=== PATIENT | female | born 1955 | race American Indian/Alaskan Native ===

== ENCOUNTER 2020-08-08 19:56 | Emergency (ER) | payer MEDICARE ==
--- NOTE | 2020-08-08 20:08 | Event Note ---
ED Screening Note Date of service: 08/08/20 Time: 20:06 ED Screening Note: pt ia s 65 y/o aaf with hx of Lupus and current dx of H pyloir on , erythromycin, flagil, and prevacid po , Plaquinil for lupus, states worsen n/v cp, and sob , seen by pcp not improved with 2L NS, symptoms exacerbated by po intake, symptoms relieved by nothing. This initial assessment/diagnostic orders/clinical plan/treatment(s) is/are subject to change based on patients health status, clinical progression and re- assessment by fellow clinical providers in the ED. Further treatment and workup at subsequent clinical providers discretion. Patient/guardian urged not to elope from the ED as their condition may be serious if not clinically assessed and managed. Initial orders include:
[2020-08-08 20:23] LABS: Basophils % (Auto) 0.5 % (0.0-1.8); Eosinophils % (Auto) 0.5 % (0.0-4.3); Hematocrit 36.3 % (30.3-42.9); Hemoglobin 12.3 gm/dl (10.1-14.3); Lymphocytes % (Auto) 36.8 % (13.4-35.0); Mean Corpuscular HGB Conc 34 % (30-34); Mean Corpuscular Volume 92 fl (79-97); Monocytes # (Auto) 0.4 K/mm3 (0.0-0.8); Monocytes % (Auto) 14.2 % (0.0-7.3); Platelet Count 218 K/mm3 (140-440); Red Blood Count 3.94 M/mm3 (3.65-5.03); Red Cell Distribution Width 15.4 % (13.2-15.2)
--- NOTE | 2020-08-08 20:33 | XRay Report ---
CHEST 2 VIEWS INDICATION / CLINICAL INFORMATION: chest pain. COMPARISON: None available. FINDINGS: SUPPORT DEVICES: None. HEART / MEDIASTINUM: No significant abnormality. LUNGS / PLEURA: No significant pulmonary or pleural abnormality. No pneumothorax. ADDITIONAL FINDINGS: No significant additional findings. IMPRESSION: No significant abnormality Signer Name: Juan Keenan MD FACR Signed: 08/08/2020 8:28 PM Workstation Name: [id number]
[2020-08-08 20:41] LABS: Alanine Aminotransferase 11 units/L (7-56); Albumin 4.2 g/dL (3.9-5); BUN/Creatinine Ratio 14; Blood Urea Nitrogen 11 mg/dL (7-17); Calcium 9.1 mg/dL (8.4-10.2); Hemolysis Index 4
[2020-08-08 20:45] LABS: Bilirubin,Urine NEG (Negative); Blood,Urine NEG (Negative); Color,Urine Amber (Yellow); Mucus,Urine 1+ /HPF; Urobilinogen,Urine < 2.0 mg/dL (<2.0)
--- NOTE | 2020-08-08 22:03 | Emergency Department Report ---
ED Chest Pain HPI - General Chief Complaint: Chest Pain Stated Complaint: CHEST PAIN PUI?: No Time Seen by Provider: 08/08/20 21:42 Source: patient Mode of arrival: Ambulatory Limitations: No Limitations - History of Present Illness Initial Comments: Patient is a 65-year-old female that presents emergency room with epigastric pa in radiating to her chest. Patient states the pain is radiating substernally up into her throat. Patient states she is also having a fullness in her throat. Patient states that her symptoms been going on for 2 weeks. Patient states her symptoms have been worse since she started taking her H. pylori treatment. Patient is currently taking clindamycin and metronidazole and omeprazole. Patient's omeprazole is 40 mg daily. Patient states she was diagnosed by her primary care. Patient states she is having a burning sensation. Patient states that her symptoms are worsening. Patient denies fever and chills. Patient denies cough. Patient states she has shortness of breath at times. Patient states that her burning sensation is better with food. Patient states the pain is worse when she is not eating. Patient denies recent travel. Patient denies recent international travel. Patient denies exposure to the novel coronavirus. Patient denies sick contacts. Patient denies fever and chills. Patient denies cough. Patient denies diarrhea. Patient denies coming in contact with anybody with symptoms of the novel coronavirus. MD Complaint: chest pain, other -: Sudden Onset: after eating Pain Location: substernal, epigastric Pain Radiation: other (Throat) Severity: severe Severity scale (0 -10): 8 Quality: other (Burning) Consistency: constant Improves With: eating Worsens With: other (In between meals) re: nausea, dyspnea. denies: vomting, diaphoresis, sense of impending doom Other Symptoms: acid taste in mouth, burping. denies: cough, fever, syncope, rash, leg swelling, palpitations Treatments Prior to Arrival: other Aspirin use within the Past 7 Days: (0) No - Related Data On Oral Contraceptives: No Previous Rx's Medication Instructions Recorded Last Taken Type Famotidine [Pepcid] 40 mg PO QHS 30 Days #30 tablet 08/08/20 Unknown Rx Heart Score - HEART Score History: Slightly suspicious EKG: Normal Age: > 65 Risk factors: No known risk factors Troponin: < normal limit HEART Score: 2 ED Review of Systems ROS: Stated complaint: CHEST PAIN Other details as noted in HPI Constitutional: denies: chills, fever Eyes: denies: eye pain, eye discharge, vision change ENT: denies: ear pain, throat pain Respiratory: denies: cough, shortness of breath, wheezing Cardiovascular: as per HPI, chest pain. denies: palpitations Endocrine: no symptoms reported Gastrointestinal: as per HPI, abdominal pain, nausea. denies: vomiting, diarrhea Genitourinary: denies: urgency, dysuria, discharge Musculoskeletal: denies: back pain, joint swelling, arthralgia Skin: denies: rash, lesions Neurological: denies: headache, weakness, paresthesias Psychiatric: denies: anxiety, depression Hematological/Lymphatic: denies: easy bleeding, easy bruising ED Past Medical Hx - Past Medical History Previous Medical History?: Yes Hx of Cancer: Yes (Left Breast) Additional medical history: H.Pylori. Lupus. Thyroid Disease - Surgical History Past Surgical History?: Yes Additional Surgical History: Hysterectomy - Family History Family history: no significant - Social History Smoking Status: Never Smoker Substance Use Type: None - Medications Home Medications: Home Medications Medication Instructions Recorded Confirmed Last Taken Type Famotidine [Pepcid] 40 mg PO QHS 30 Days #30 tablet 08/08/20 Unknown Rx ED Physical Exam - General Limitations: No Limitations General appearance: alert, in no apparent distress - Head Head exam: Present: atraumatic, normocephalic - Eye Eye exam: Present: normal appearance - ENT ENT exam: Present: mucous membranes moist - Neck Neck exam: Present: normal inspection - Respiratory Respiratory exam: Present: normal lung sounds bilaterally, chest wall tenderness (Sternal chest wall tenderness). Absent: respiratory distress - Cardiovascular Cardiovascular Exam: Present: regular rate, normal rhythm. Absent: systolic murmur, diastolic murmur, rubs, gallop - GI/Abdominal GI/Abdominal exam: Present: soft, tenderness (Epigastric tenderness), normal bowel sounds - Extremities Exam Extremities exam: Present: normal inspection - Back Exam Back exam: Present: normal inspection - Neurological Exam Neurological exam: Present: alert, oriented X3 - Psychiatric Psychiatric exam: Present: normal affect, normal mood - Skin Skin exam: Present: warm, dry, intact, normal color. Absent: rash ED Course Vital Signs 08/08/20 20:01 Temperature 98.4 F Pulse Rate 116 H Respiratory 18 Rate Blood Pressure 190/102 O2 Sat by Pulse 99 Oximetry - Reevaluation(s) Reevaluation #1: I discussed results with patient. Patient will receive a GI cocktail. Patient agrees with plan of care. 08/08/20 22:06 Reevaluation #2: Patient states feeling much better after GI cocktail. Patient states her symptoms have almost resolved. I discussed all results and clinical findings with patient. I discussed plan of care with patient. Patient agrees with plan of care. Patient is stable for discharge. Patient will be discharged home. Patient given discharge instructions. Patient voiced understanding of discharge instructions. 08/08/20 22:59 STEVE score - Steve Score Age > 65: (0) No Aspirin use within the Past 7 Days: (0) No 3 or more CAD Risk Factors: (0) No 2 or more Angina events in past 24 hrs: (0) No Known CAD with more than 50% Stenosis: (0) No Elevated Cardiac Markers: (0) No ST Deviation Greater than 0.5mm: (0) No STEVE Score: 0 ED Medical Decision Making - Lab Data Result diagrams: 08/08/20 20:13 08/08/20 20:13 - EKG Data -: EKG Interpreted by Me EKG shows normal: sinus rhythm, axis, intervals, QRS complexes, ST-T waves Rate: normal - Radiology Data Radiology results: report reviewed, image reviewed interpreted by me: Chest x-ray: No pneumonia, no pneumothorax, no foreign body, no osseous findings, no acute findings CHEST 2 VIEWS INDICATION / CLINICAL INFORMATION: chest pain. COMPARISON: None available. FINDINGS: No significant abnormality - Medical Decision Making Patient is a 65-year-old female that presents emergency room with complaints of epigastric and chest pain x2 weeks. Patient's pain was epigastric radiating up her esophagus and into the throat. Patient complained of globulus redness as well. Patient recently diagnosed by her primary care for H. pylori. Patient was given H. pylori treatment of colitis with Romycin metronidazole and omeprazole. Patient taking omeprazole 40 mg daily. Patient had chest pain and a cardiac work-up done in ER. Patient's labs were essentially unremarkable. Patient troponin was negative. Patient EKG is normal and shows no ST changes or acute findings. I interpreted the EKG. Patient had a chest x-ray in the ER. Patient chest x-ray shows no acute findings. I interpreted the EKG. Patient given a GI cocktail. Patient clinical findings are consistent with gastritis and esophagitis. Patient is stable for discharge. Patient was discharged home. Patient was referred to a GI and back to her primary care. Given that the patient's chest pain is low risk and most likely secondary to gastritis and esophagitis and reflux, the patient's information was faxed over to our local cardiology. - Differential Diagnosis Chest pain, GERD, gastritis, esophagitis, H. pylori Critical care attestation.: If time is entered above; I have spent that time in minutes in the direct care of this critically ill patient, excluding procedure time. ED Disposition Clinical Impression: H. pylori infection, Esophagitis, Acute epigastric pain Gastritis Qualifiers: Gastritis type: unspecified gastritis Chronicity: acute Gastritis bleeding: without bleeding Qualified Code(s): K29.00 - Acute gastritis without bleeding GERD (gastroesophageal reflux disease) Qualifiers: Esophagitis presence: with esophagitis Esophagitis bleeding: without hemorrhage Qualified Code(s): K21.00 - Gastro-esophageal reflux disease with esophagitis, without bleeding Chest pain Qualifiers: Chest pain type: unspecified Qualified Code(s): R07.9 - Chest pain, unspecified Disposition: DC-01 TO HOME OR SELFCARE Is pt being admited?: No Does the pt Need Aspirin: No Condition: Stable Instructions: Chest Pain (ED), Gastritis, Adult, [id number], Antibiotic Medicine, Adult, [id number], Heartburn, [id number], Gastritis, Adult, Food Choices for Gastroesophageal Reflux Disease, Adult, [id number] Additional Instructions: Patient to follow-up with primary care in 2 to 3 days. Patient to follow-up with optimization engineer and assistant maintenance manager in 2 to 3 days. Patient to rest. Patient to increase water. Patient to avoid strenuous exercise or heavy lifting until cleared by assistant maintenance manager. Patient to take Tylenol as needed for pain. Patient to take meds as directed. Patient to return to the ER if condition worsens, changes or new symptoms arise. Patient to continue Biaxin and Flagyl until the course is complete. Patient to continue omeprazole. Patient to eat a reflux diet. Patient to avoid alcohol and NSAIDs. Prescriptions: Famotidine [Pepcid] 40 mg PO QHS 30 Days #30 tablet Referrals: PRIMARY CARE, [Primary Care Provider] - 2-3 Days DAYSI LOVE MD [Staff Physician] - 2-3 Days BOLA CHRISTOPHER MD [Staff Physician] - 2-3 Days Time of Disposition: 23:12
[2020-08-08] MEDS ORDERED: ALUM-MAG HYDROXIDE-SIMETHICONE 200-200-20MG/5ML ORAL LIQD 30 ML PO ONE (22:05)
[2020-08-08] MEDS ORDERED: LIDOCAINE VISCOUS 2% 15 ML ORAL LIQD PO ONE (22:05)
[2020-08-08 23:22] VITALS: BP 167/88
== END 2020-08-08 23:20 | disposition home or self-care (01) ==
LOC: ED 19:56
DX: K21.9 Gastro-esophageal reflux disease without esophagitis (principal); K29.70 Gastritis, unspecified, without bleeding; A04.8 Other specified bacterial intestinal infections; K20.90 Esophagitis, unspecified without bleeding; R10.13 Epigastric pain; R07.89 Other chest pain; Z85.3 Personal history of malignant neoplasm of breast; Z90.710 Acquired absence of both cervix and uterus; Z87.891 Personal history of nicotine dependence; Z79.899 Other long term (current) drug therapy
CPT/HCPCS: 36415; 71046; 80053; 81001; 83690; 84484; 85025; 93005